=== PATIENT | female | born 1990 | race Two or more races ===

== ENCOUNTER 2022-12-20 02:32 | Inpatient (IN) | payer OTHER ==
[~2022-12-20] VITALS: Ht 162.6 cm; Wt 83.9 kg
[2022-12-20] MEDS ORDERED: PRENATAL MULTI1 EAC4 PO (02:42)
[2022-12-20 03:12] LABS: HEMATOCRIT 31.5 % (36.0-45.00); HEMOGLOBIN 10.7 g/dL (12.0-15.00); MEAN CELL VOLUME 91.3 fL (80.00-100.00); MEAN CORPUSCULAR HEMOGLOBIN 31.1 pg (27.00-32.0); PH,URINE 6.5 (5.0-8.0); PLATELET COUNT 222 K/uL (150-450); RED BLOOD COUNT 3.45 M/uL (4.00-6.00); RED CELL DISTRIBUTION WIDTH 13.5 % (11.5-14.5); URINE APPEARANCE Cloudy; URINE BILIRRUBIN Negative (NEGATIVE); URINE BLOOD Large; URINE COLOR Yellow; URINE GLUCOSE Negative (NEGATIVE); URINE LEUKOCYTE Moderate; URINE NITRATE Positive; URINE PROTEIN 30 (NEGATIVE); URINE UROBILINOGEN 0.2 E.U./dl
[2022-12-20 03:16] LABS: URINE EPITHELIAL CELLS 11.4 uL (0.0-38.8); URINE RBC 2473.6 uL (0.0-20.8); URINE WBC 275.6 uL (0.0-23.2)
[2022-12-20 03:35] LABS: URINE BACTERIA > 9821.5 uL (0.0-1933)
[2022-12-20 03:43] LABS: INR 0.94; PROTHROMBIN TIME 9.9 SECONDS (9.0-11.5)
[2022-12-20 03:48] LABS: ALBUMIN 2.2 gm/dL (3.4-5.0); BILIRUBIN TOTAL 0.16 mg/dL (0.3-1.2); CALCIUM 8.6 mg/dL (8.5-10.1); GFR 170.16; GLOBULINA 3.4 G/DL (2.4-3.5); POTASSIUM 3.78 mEq/L (3.5-5.1); TOTAL PROTEIN 5.6 gm/dL (6.4-8.2)
[2022-12-20 03:56] LABS: CREATININE SERUM 0.43 mg/dL (0.55-1.02)
== END 2022-12-22 16:15 | disposition home or self-care (01) | DRG 833 ==
LOC: OBS/DEL 02:32 → LDR 13:06 → OB/GYN 13:06
PROVIDERS: Student in an Organized Health Care Education/Training Program; ADMIT Obstetrics & Gynecology; ATTEND Obstetrics & Gynecology
PROC: 4A1HXCZ Monitoring of Products of Conception, Cardiac Rate, External Approach (ICD-10-PCS; principal; 2022-12-20)
PROC: BY4FZZZ Ultrasonography of Third Trimester, Single Fetus (ICD-10-PCS; 2022-12-20)
PROC: BU4CZZZ Ultrasonography of Uterus and Ovaries (ICD-10-PCS; 2022-12-20)
DX: O26.843 Uterine size-date discrepancy, third trimester (principal); O36.8130 Decreased fetal movements, third trimester, not applicable or unspecified; O23.43 Unspecified infection of urinary tract in pregnancy, third trimester; O60.03 Preterm labor without delivery, third trimester; O44.03 Complete placenta previa NOS or without hemorrhage, third trimester; Z3A.30 30 weeks gestation of pregnancy; Z20.822 Contact with and (suspected) exposure to COVID-19

== ENCOUNTER 2023-01-29 10:45 | Inpatient (IN) | payer OTHER ==
[~2023-01-29] VITALS: Ht 162.6 cm; Wt 90.7 kg
[~2023-01-29 10:45] MED LIST: PRENATAL MULTI1 EAC4 PO
[2023-01-29 13:47] LABS: URINE APPEARANCE Cloudy; URINE BILIRRUBIN Negative (NEGATIVE); URINE BLOOD Negative; URINE COLOR Yellow; URINE GLUCOSE Negative (NEGATIVE); URINE LEUKOCYTE Large; URINE NITRATE Positive; URINE PROTEIN Negative (NEGATIVE); URINE UROBILINOGEN 0.2 E.U./dl
[2023-01-29 13:48] LABS: URINE EPITHELIAL CELLS 69.7 uL (0.0-38.8); URINE WBC 402.8 uL (0.0-23.2)
[2023-01-29 13:50] LABS: HEMATOCRIT 35.1 % (36.0-45.00); HEMOGLOBIN 11.9 g/dL (12.0-15.00); MEAN CELL VOLUME 90.7 fL (80.00-100.00); MEAN CORPUSCULAR HEMOGLOBIN 30.6 pg (27.00-32.0); MEAN CORPUSCULAR HGB CONC 33.8 g/dl (32.0-36.0); PLATELET COUNT 215 K/uL (150-450); RED BLOOD COUNT 3.87 M/uL (4.00-6.00); RED CELL DISTRIBUTION WIDTH 13.8 % (11.5-14.5)
[2023-01-29 14:01] LABS: URINE BACTERIA > 9821.2 uL (0.0-1933)
[2023-01-29 14:19] LABS: INR < 0.93; PARTIAL THROMBOPLASTIN TIME 25.6 SECONDS (22.0-34.0); PROTHROMBIN TIME 9.8 SECONDS (9.0-11.5)
[2023-01-29 14:20] LABS: ALBUMIN 2.4 gm/dL (3.4-5.0); BILIRUBIN TOTAL 0.26 mg/dL (0.3-1.2); CALCIUM 9.4 mg/dL (8.5-10.1); CREATININE SERUM 0.54 mg/dL (0.55-1.02); GFR 130.83; GLOBULINA 3.8 G/DL (2.4-3.5); TOTAL PROTEIN 6.2 gm/dL (6.4-8.2)
[2023-02-06 07:39] LABS: HEMATOCRIT 32.7 % (36.0-45.00); MEAN CELL VOLUME 91.5 fL (80.00-100.00); MEAN CORPUSCULAR HEMOGLOBIN 30.8 pg (27.00-32.0); MEAN CORPUSCULAR HGB CONC 33.6 g/dl (32.0-36.0); PLATELET COUNT 160 K/uL (150-450); RED BLOOD COUNT 3.58 M/uL (4.00-6.00); RED CELL DISTRIBUTION WIDTH 14.1 % (11.5-14.5)
[2023-02-08] MEDS ORDERED: IBU800 MG PO (07:52)
[2023-02-08] MEDS ORDERED: COLACE100 MG PO (07:52)
[2023-02-08] MEDS ORDERED: SIMETHICONE125 M1 PO (07:53)
== END 2023-02-08 14:46 | disposition home or self-care (01) | DRG 788 ==
LOC: OB/GYN 02-05 07:00 → O/R 02-05 09:22 → OB/GYN 02-05 09:22 → LDR 02-05 10:12 → OB/GYN 02-05 10:45
PROVIDERS: ADMIT Obstetrics & Gynecology; ATTEND Obstetrics & Gynecology
PROC: 4A1HXCZ Monitoring of Products of Conception, Cardiac Rate, External Approach (ICD-10-PCS; 2023-02-05)
PROC: 10D00Z1 Extraction of Products of Conception, Low, Open Approach (ICD-10-PCS; principal; 2023-02-05 16:45)
DX: O44.03 Complete placenta previa NOS or without hemorrhage, third trimester (principal); Z3A.37 37 weeks gestation of pregnancy; Z37.0 Single live birth; Z20.822 Contact with and (suspected) exposure to COVID-19